=== PATIENT | female | born 1975 | race Two or more races ===

== ENCOUNTER 2023-03-01 12:21 | Inpatient (IN) | payer OTHER ==
[~2023-03-01] VITALS: Ht 167.6 cm; Wt 75.3 kg
[~2023-03-01 12:21] MED LIST: CRYSELLE1 TAB
[2023-03-01] MEDS ORDERED: METFORMIN HCL1000 M3 PO (13:13)
--- NOTE | 2023-03-01 13:29 | NUR ---
SE RECIBE PACIENTE ALERTA Y ORIENTADA POR SHAUNA AFEBRIL AMBULANDO Y ACOMPANADA DE [place]. RESPONDIENDO A ESTIMULOS. REACCION PUPILAR A 3 MM BILATERAL. PACIENTE REFIERE QUE PADECE DE ANEMIA Y DESDE OLIVER EN LA TARDE LE NOTIFICARON HEMOGLOBINA N 5. PACIENTE NO REFIERE MAREOS O DEBILIDAD. INDICA QUE DESDE HACE SHAUNA BARRON ESTA EN PERIODO. SE REALIZA EKG Y SE LE NOTIFICA DR DARBY POR LO CUAL SE COLOCA EN JOSE.DR DARBY NO FIRMA EKG. SE UBICA EN JOSE 13 #
--- NOTE | 2023-03-01 14:40 | NUR ---
PTE EVALUADA POR EL DR FULLER QUIEN [place]. MS Lena RENE ORIENTA SOBRE EL [place] ORDENADO, LO CUAL REFIERE ENTENDER, REALIZA PRUEBAS DE LABORATORIO Y ADMINISTRA MEDICAMENTOS MICKY ORDEN MEDICA Y SIGUIENDO MEDIDAS ASEPTICAS. SONOGRAMA PELVICO NOTIFICADO A PERSONAL DE TURNO.
--- NOTE | 2023-03-01 16:05 | NUR ---
SE LE ZOHAIB LOS PILOTOS PARA PEDIR LAS 4 UNITS DE PRBC'S.
[2023-03-02] MEDS ORDERED: METFORMIN HCL1000 M3 (14:16)
[2023-03-02] MEDS ORDERED: SIMVASTATIN20 MG (14:16)
[2023-03-02] MEDS ORDERED: FAMOTIDINE40 MG (14:16)
[2023-03-02] MEDS ORDERED: ZOCOR20 MG PO (14:17)
[2023-03-04] MEDS ORDERED: INTEGRA PLUS C1 EACH PO ×2 (14:50)
== END 2023-03-04 15:16 | disposition home or self-care (01) | DRG 812 ==
LOC: ER 12:21 → MEDI 17:12
PROVIDERS: ADMIT Internal Medicine; ATTEND Internal Medicine
PROC: 30233N1 Transfusion of Nonautologous Red Blood Cells into Peripheral Vein, Percutaneous Approach (ICD-10-PCS; principal; 2023-03-01)
DX: D64.9 Anemia, unspecified (principal); N92.0 Excessive and frequent menstruation with regular cycle; E11.9 Type 2 diabetes mellitus without complications; D25.9 Leiomyoma of uterus, unspecified; E78.5 Hyperlipidemia, unspecified; D50.0 Iron deficiency anemia secondary to blood loss (chronic)

== ENCOUNTER → 2024-02-25 | Emergency (ER) | payer OTHER ==
[~2024-02-25] VITALS: Ht 165.1 cm; Wt 77.1 kg
[~2024-02-25] MED LIST changes: +0.9 % SODIUM CHLORIDE 1,000 ML IV ONE; +FAMOTIDINE40 MG; +INTEGRA PLUS C1 EACH PO; +KETOROLAC TROMETHAMINE 15 MG VIAL IV ONE; +METFORMIN HCL1000 M3; +METFORMIN HCL1000 M3 PO; +ONDANSETRON HCL 2 MG/ML VIAL IV ONE; +PIPERACILLIN/TAZOBACTAM SODIUM 3.375 GM VIAL IV ONE; +SIMVASTATIN20 MG; +ZOCOR20 MG PO
[2024-02-25 16:56] LABS: HEMATOCRIT 23.8 % (36.0-45.00); MEAN CELL VOLUME 74.6 fL (80.00-100.00); MEAN CORPUSCULAR HGB CONC 30.4 g/dl (32.0-36.0); PLATELET COUNT 529 K/uL (150-450)
[2024-02-25 16:58] LABS: HEMOGLOBIN 7.3 g/dL (12.0-15.00); MEAN CORPUSCULAR HEMOGLOBIN 22.8 pg (27.00-32.0); RED CELL DISTRIBUTION WIDTH 22.4 % (11.5-14.5)
[2024-02-25 17:14] LABS: URINE APPEARANCE Clear; URINE BILIRRUBIN Negative (NEGATIVE); URINE BLOOD Negative; URINE COLOR Yellow; URINE GLUCOSE Negative (NEGATIVE); URINE LEUKOCYTE Negative; URINE NITRATE Negative; URINE PROTEIN Negative (NEGATIVE); URINE UROBILINOGEN 0.2 E.U./dl
[2024-02-25 17:17] LABS: URINE BACTERIA 1229.6 uL (0.0-1933); URINE EPITHELIAL CELLS 29.2 uL (0.0-38.8); URINE RBC 5.1 uL (0.0-20.8); URINE WBC 9.2 uL (0.0-23.2)
[2024-02-25 17:24] LABS: ALBUMIN 3.5 gm/dL (3.4-5.0); BILIRUBIN TOTAL 0.44 mg/dL (0.3-1.2); CREATININE SERUM 0.87 mg/dL (0.55-1.02); GFR 69.2; POTASSIUM 3.64 mEq/L (3.5-5.1); TOTAL PROTEIN 7.5 gm/dL (6.4-8.2)
== END | disposition left against medical advice (07) ==
LOC: ER 14:25
PROVIDERS: General Practice
DX: N83.291 Other ovarian cyst, right side (principal); D64.89 Other specified anemias; R10.31 Right lower quadrant pain; D25.9 Leiomyoma of uterus, unspecified